=== PATIENT | male | born 1975 | race Caucasian/White ===

== ENCOUNTER 2017-01-17 09:18 | Inpatient (IN) | payer OTHER ==
[~2017-01-17] VITALS: Ht 185.4 cm; Wt 136.8 kg
[2017-01-17] VITALS (7 sets, daily range): BP systolic 116–134; BP diastolic 71–90; PULSE 73–84; TEMP 36.7–37.1; O2SAT 93–98; Ht 185.4 cm; Wt 136.8 kg
[2017-01-17] MEDS ORDERED: CITA40TA12 PO (09:35)
[2017-01-17] MEDS ORDERED: ATOR-54 PO (09:35)
[2017-01-17] MEDS ORDERED: DPKEC250 PO (09:35)
[2017-01-17] MEDS ORDERED: RMRS/45 PO (09:35)
[2017-01-17] MEDS ORDERED: LSN/20125 PO (09:35)
[2017-01-17] MEDS ORDERED: SODIUM CHLORIDE 0.9% 1000ML 1,000 ML IV STA (09:52)
[2017-01-17 10:03] LABS: BASO % 0.3 %; BASO ABS # 0.02 K/uL (0-0.2); COMPLETE YES; EOS % 1.2 %; HEMATOCRIT 43.7 % (42-52); IG% 0.3 %; LYMPH % 32.6 %; LYMPH ABS # 2.19 K/uL (1.2-3.4); MEAN CELL VOLUME 85.2 fL (80-100); MEAN CORPUSCULAR HEMOGLOBIN 28.5 pg (25-34); MEAN CORPUSCULAR HGB CONC 33.4 g/dl (32-36); MEAN PLATELET VOLUME 8.7 fL (7.4-10.4); MONO % 9.7 %; NEUT % 55.9 %; PLATELET COUNT 242 K/uL (130-400); RED BLOOD COUNT 5.13 M/uL (4.7-6.1); WHITE BLOOD COUNT 6.72 K/uL (4.8-10.8)
--- NOTE | 2017-01-17 10:03 | EMERGENCY ROOM VISIT NOTE ---
History Report prepared by Shanon: Julio Bloom Under the Supervision of: Dr. Darin Nj D.O. First contact with patient: 09:24 Stated Complaint: CHEST PAIN History of Present Illness The patient is a 41 year old male who presents to the Emergency Room with complaints of constant chest pain starting earlier this morning. The patient states that he was walking around, and he started getting chest tightness, chest pain, left arm pain, shortness of breath, nausea, and became diaphoretic. The patient denies any leg swelling or leg pain. He states that he has never had pain like this before, and he had a stress test done 10 years ago. The patient denies any history of blood clots, though he has a history of hypertension, high cholesterol, bipolar, and depression. He states that he takes Depakote for his bipolar disorder for the past 8 months. The patient states that he was given aspirin and nitroglycerine prior to arrival, and he states that it improved the symptoms. He states that he does not have a family history of early heart attacks, and he denies smoking for three years, drinking alcohol, or using drugs. Source of History: patient Onset: this morning Position: chest Timing: constant Modifying Factors (Relieving): other (nitroglycerine and aspirin) Associated Symptoms: + diaphoresis, + SOB, + nausea Note: Associated symptoms: Left arm pain Review of Systems See HPI for pertinent positives & negatives. A total of 10 systems reviewed and were otherwise negative. Past Medical & Surgical Medical Problems: (1) Bipolar disorder (2) Depression (3) High cholesterol (4) Hypertension (5) Unstable angina Social History Smoking Status: Former Smoker Housing Status: other Occupation Status: unemployed Current/Historical Medications Scheduled Atorvastatin (Lipitor), 20 MG PO DAILY Citalopram Hydrobromide (Celexa), 40 MG PO DAILY Divalproex Sodium (Divalproex Sodium Dr), 250 MG PO BID Hctz/Lisinopril (PRINZIDE 20/12.5 Mg), 1 TAB PO DAILY Mirtazapine (Mirtazapine), 45 MG PO HS Allergies Coded Allergies: Prochlorperazine (Unverified Allergy, Unknown, ., 01/17/17) Physical Exam Vital Signs Date Time Temp Pulse Resp B/P (MAP) Pulse Ox O2 Delivery O2 Flow Rate FiO2 01/17/17 11:44 96 Room Air 01/17/17 10:51 96 16 120/91 96 Room Air 01/17/17 09:33 110 01/17/17 09:30 37.5 101 16 129/85 94 Room Air 01/17/17 09:26 96 Room Air 01/17/17 09:23 95 Room Air Physical Exam GENERAL: Patient is awake, alert, and in no acute distress. Patient is resting comfortably and showing no signs of anxiety EYES: The conjunctivae are clear. The pupils are round and reactive. EARS, NOSE, MOUTH AND THROAT: The nose is without any evidence of any deformity. Mucous membranes are moist tongue is midline NECK: The neck is nontender and supple. RESPIRATORY: Normal respiratory effort is noted there is no evidence of wheezing rhonchi or rales CARDIOVASCULAR: Regular rate and rhythm noted there no murmurs rubs or gallops normal S1 normal S2 GASTROINTESTINAL: The abdomen is soft. Bowel sounds are present in all quadrants. Abdomen is nontender MUSCULOSKELETAL/EXTREMITIES: There is no evidence of gross deformity full range of motion is noted in the hips and shoulders SKIN: There is no obvious evidence of any rash. There are no petechiae, pallor or cyanosis noted. NEUROLOGIC: Patient is awake alert and oriented x3 Medical Decision & Procedures ER Provider Diagnostic Interpretation: X-ray results as stated below per interpretation by me and the radiologist. CHEST ONE VIEW PORTABLE CLINICAL HISTORY: CHEST PAIN dyspnea COMPARISON STUDY: No previous studies for comparison. FINDINGS: The bones soft tissues and hemidiaphragms are normal. The cardiomediastinal silhouette is normal. The lungs are clear. The pulmonary vasculature is normal. IMPRESSION: Negative chest. Electronically signed by: Tylor Garcia M.D. 01/17/2017 10:52 AM Dictated Date/Time: 01/17/2017 10:52 AM Laboratory Results 01/17/17 09:25 Red Blood Count 5.13, Mean Corpuscular Volume 85.2, Mean Corpuscular Hemoglobin 28.5, Mean Corpuscular Hemoglobin Concent 33.4, Mean Platelet Volume 8.7, Neutrophils (%) (Auto) 55.9, Lymphocytes (%) (Auto) 32.6, Monocytes (%) (Auto) 9.7, Eosinophils (%) (Auto) 1.2, Basophils (%) (Auto) 0.3, Neutrophils # (Auto) 3.76, Lymphocytes # (Auto) 2.19, Monocytes # (Auto) 0.65, Eosinophils # (Auto) 0.08, Basophils # (Auto) 0.02 01/17/17 09:25 Test 01/17/17 09:25 01/17/17 09:56 White Blood Count 6.72 K/uL (4.8-10.8) Red Blood Count 5.13 M/uL (4.7-6.1) Hemoglobin 14.6 g/dL (14.0-18.0) Hematocrit 43.7 % (42-52) Mean Corpuscular Volume 85.2 fL (80-100) Mean Corpuscular Hemoglobin 28.5 pg (25-34) Mean Corpuscular Hemoglobin Concent 33.4 g/dl (32-36) Platelet Count 242 K/uL (130-400) Mean Platelet Volume 8.7 fL (7.4-10.4) Neutrophils (%) (Auto) 55.9 % Lymphocytes (%) (Auto) 32.6 % Monocytes (%) (Auto) 9.7 % Eosinophils (%) (Auto) 1.2 % Basophils (%) (Auto) 0.3 % Neutrophils # (Auto) 3.76 K/uL (1.4-6.5) Lymphocytes # (Auto) 2.19 K/uL (1.2-3.4) Monocytes # (Auto) 0.65 K/uL (0.11-0.59) Eosinophils # (Auto) 0.08 K/uL (0-0.5) Basophils # (Auto) 0.02 K/uL (0-0.2) RDW Standard Deviation 39.0 fL (36.4-46.3) RDW Coefficient of Variation 12.5 % (11.5-14.5) Immature Granulocyte % (Auto) 0.3 % Immature Granulocyte # (Auto) 0.02 K/uL (0.00-0.02) Prothrombin Time 10.5 SECONDS (9.0-12.0) Prothromb Time International Ratio 1.0 (0.9-1.1) D-Dimer < 190 ug/L FEU (0-500) Anion Gap 10.0 mmol/L (3-11) Est Creatinine Clear Calc Drug Dose 143.4 ml/min Estimated GFR () 111.1 Estimated GFR (Non- 95.9 BUN/Creatinine Ratio 14.4 (10-20) Calcium Level 8.9 mg/dl (8.5-10.1) Total Bilirubin 0.6 mg/dl (0.2-1) Direct Bilirubin 0.1 mg/dl (0-0.2) Aspartate Amino Transf (AST/SGOT) 24 U/L (15-37) Alanine Aminotransferase (ALT/SGPT) 56 U/L (12-78) Alkaline Phosphatase 65 U/L (45-117) Total Protein 7.2 gm/dl (6.4-8.2) Albumin 3.7 gm/dl (3.4-5.0) Lipase 170 U/L (73-393) Valproic Acid (Depakene) Level 60 mcg/ml (50-100) Bedside Troponin I < 0.030 ng/ml (0-0.045) Laboratory results per my review. Medications Administered Medications (Trade) Dose Ordered Sig/Vale Route Start Time Stop Time Status Last Admin Dose Admin Sodium Chloride 1,000 ml @ 999 mls/hr Q1H1M STAT IV 01/17/17 09:52 01/17/17 10:52 DC 01/17/17 09:57 999 MLS/HR Heparin Sodium/ Dextrose (Heparin 25,000 Unit/500ml D5W) 25,000 unit STK-MED ONCE .ROUTE 01/17/17 11:03 01/17/17 11:04 DC 01/17/17 11:12 25,000 UNIT Heparin Sodium (Porcine) (Heparin Sq 5000 Unit/0.5ml) 10,000 unit STK-MED ONCE .ROUTE 01/17/17 11:03 01/17/17 11:04 DC 01/17/17 11:13 8,000 UNIT ECG Indication: chest pain Rate (beats per minute): 98 Rhythm: normal sinus Findings: no ectopy, other (No ST abnormality) Comparison ECG Date: this morning Change: Resolution of previous noted ST segment depression in the inferior and lateral leads. ED Course 0949: The patient was evaluated in room A3. A complete history and physical examination were performed. 0952: NSS 1,000 ml @ 999 mls/hr IV 0956: I discussed the patients case with Dr. Coffey, Cardiology, and he would like to wait for the blood work to come back for further treatment. 1039: I discussed the patients case with Lilly Keys and she is going to evaluate the patient for further treatment. 1103: Heparin sq 5000 Unit/0.5ml 8000 units IV, Heparin 25650 Unit/500ml D5W 27080 units IV Medical Decision Differential diagnosis: Etiologies such as cardiac ischemia, aortic dissection, pulmonary embolism, pneumonia, pneumothorax, musculoskeletal, infections, pericarditis, myocarditis , esophageal rupture, gastrointestinal, as well as others were entertained. Blood pressure screening: Patient was found to have normal blood pressure on screening and does not require follow-up. Medication Reconciliation: I attest that I have personally reviewed the patient' s current medications list. Nursing notes reviewed. Patient's previous records from [facility] were reviewed. The patient is a 41-year-old male who presented to the emergency department with exertional chest discomfort. The patient describes discomfort across his chest which began this morning while he was walking. He was diaphoretic. He was treated with aspirin and nitroglycerin at the [facility] prior to arrival. He arrived at the emergency Department with significant improvement in his chest pain. His EKG normalized. I discussed the patient's laboratory and radiographic studies with him. I also discussed the limitations of the emergency department workup for chest pain with him. I discussed his case with the on-call wire setter because of his presenting initial EKG. The patient's pain was significantly improved his EKG normalized and his initial cardiac biomarkers are negative. He was started on IV heparin in the emergency department. I discussed his case with the on-call Lilly hospitalist. They've agreed to evaluate patient in the emergency department for further management and disposition. Consults Time Called: [phone] Consulting Physician: Dr. Coffey, Cardiology Returned Call: [phone] I discussed the patients case with Dr. Coffey, Cardiology, and he would like to wait for the blood work to come back for further treatment. Additional Consults: Time Called: [phone] Consulted Physician: Lilly Keys Returned Call: [phone] Additional Comments: I discussed the patients case with Lilly Keys and she is going to evaluate the patient for further treatment. Impression Primary Impression: Substernal chest pain Additional Impressions: Abnormal EKG Unstable angina Critical Care I have personally spent greater than 35 minutes of critical care time in the direct management of this patient. This includes bedside care, interpretation of diagnostic studies, and testing, discussion with consultants, patient, and family members, and other required patient management activities. This 35 minutes is in excess of all separately billable procedures. Scribe Attestation The scribe's documentation has been prepared under my direction and personally reviewed by me in its entirety. I confirm that the note above accurately reflects all work, treatment, procedures, and medical decision making performed by me. Departure Information Dispostion Being Evaluated By Hospitalist Referrals No Doctor, Assigned (PCP) Problem Qualifiers
[2017-01-17 10:12] LABS: PARTIAL THROMBOPLASTIN RATIO 1.1; PROTHROMBIN TIME (PATIENT) 10.5 SECONDS (9.0-12.0)
[2017-01-17 10:20] LABS: BUN/CREATININE RATIO 14.4 (10-20); CALCIUM 8.9 mg/dl (8.5-10.1); CREATININE 0.97 mg/dl (0.60-1.40); POTASSIUM 3.7 mmol/L (3.5-5.1)
[2017-01-17 10:26] LABS: CKMB/CK RATIO 0.9 (0-3.0)
--- NOTE | 2017-01-17 10:54 | DIAGNOSTIC IMAGING REPORT ---
CHEST ONE VIEW PORTABLE CLINICAL HISTORY: CHEST PAIN dyspnea COMPARISON STUDY: No previous studies for comparison. FINDINGS: The bones soft tissues and hemidiaphragms are normal. The cardiomediastinal silhouette is normal. The lungs are clear. The pulmonary vasculature is normal. IMPRESSION: Negative chest. Electronically signed by: Tylor Garcia M.D. 01/17/2017 10:52 AM Dictated Date/Time: 01/17/2017 10:52 AM
[2017-01-17] MEDS ORDERED: HEPARIN 25000 UNIT/500 ML D5W ONE (11:03)
[2017-01-17] MEDS ORDERED: HEPARIN SOD 5000 UNIT/0.5 ML CARP ONE (11:03)
[2017-01-17] MEDS ORDERED: ALUMINUM/MAGNESIUM/SIMETH (MAALOX MAX) 30 ML UDC PO PRN (12:00)
[2017-01-17] MEDS ORDERED: ONDANSETRON INJ 2 MG/ML 2 ML VIAL IV PRN (12:00)
[2017-01-17] MEDS ORDERED: NITROGLYCERIN 0.4 MG SL PER TAB CHARGE SL PRN (12:00)
[2017-01-17] MEDS ORDERED: POLYETHYLENE (MIRALAX) 17 GM PACK PO PRN (12:00)
[2017-01-17] MEDS ORDERED: ACETAMINOPHEN 325 MG TAB PO PRN (12:00)
[2017-01-17] MEDS ORDERED: MAGNESIUM HYDROXIDE SUSP 30 ML UDC PO PRN (12:00)
[2017-01-17] MEDS: HEPARIN 25,000 UNIT/500ML D5W 500 ML IV PRN ×2 (14:03→23:42)
--- NOTE | 2017-01-17 15:32 | History and Physical ---
History & Physical Date & Time of Service: Jan 17, 2017 at 15:32 Chief Complaint: Unstable Angina Primary Care Physician: Abebe RIVERA History of Present Illness Source: patient This is a 41 yo M [facility] with past medical hx of HTN , hyperlipidemia , depression , bipolar mood disorder presented to ED with complain of left sided chest pain started this AM pt mentions while he was walking started to have dull heaviness on his left side of chest ,associated with palpitation , was very SOB , felt nauseous, broke into sweat pain radiated to his left arm was sent to [facility] -pt was given Aspirin 325 mg and SL nitro his pain eased up EKG done at [facility] showed ST depression in Inf and lateral leads pt was sent to [facility] ER via EMS pt given SL nitro spray since arrival to ED -had not had any episode of chest pain pt mentions of having intermittent palpitation for past 1 week with PADILLA denies of any orthopnea , no ankle swelling never had angina episode in past no family hx of CAD Grandmother has hx of DM and CVA during my time of interview , pt was comfortable , no SOB mentions of intermittent chest heaviness , not bothering him much no complain of palpitation , dizzy spell or lightheadedness Social History Smoking Status: Never Smoker Occupational Status: unemployed Allergies Coded Allergies: Prochlorperazine (Unverified Allergy, Unknown, ., 01/17/17) Home Medications Scheduled Atorvastatin (Lipitor), 20 MG PO DAILY Citalopram Hydrobromide (Celexa), 40 MG PO DAILY Divalproex Sodium (Divalproex Sodium Dr), 250 MG PO BID Hctz/Lisinopril (PRINZIDE 20/12.5 Mg), 1 TAB PO DAILY Mirtazapine (Mirtazapine), 45 MG PO HS Review of Systems Constitutional: No fever, No chills, No sweats, No weight loss, No weakness, No fatigue, No problem reported ENT: No hearing loss, No unusual epistaxis, No nasal symptoms, No sore throat, No tinnitus, No dental problems, No trouble swallowing, No problem reported Respiratory: + shortness of breath, + dyspnea on exertion Cardiovascular: + chest pain, + palpitations Abdomen: No pain, No nausea, No vomiting, No diarrhea, No constipation, No GI bleeding, No problem reported Musculoskeletal: No joint pain, No muscle pain, No swelling, No calf pain, No problem reported Neurologic: No memory loss, No paralysis, No weakness, No numbness/tingling, No vertigo, No balance problems, No problem reported Physical Exam Vital Signs Date Time Temp Pulse Resp B/P (MAP) Pulse Ox O2 Delivery O2 Flow Rate FiO2 01/17/17 15:11 37.1 84 18 134/82 (99) 93 Room Air 01/17/17 13:07 36.9 83 18 132/79 (96) 98 Room Air 01/17/17 12:31 89 20 134/91 94 Room Air 01/17/17 11:44 96 Room Air 01/17/17 10:51 96 16 120/91 96 Room Air 01/17/17 09:33 110 01/17/17 09:30 37.5 101 16 129/85 94 Room Air 01/17/17 09:26 96 Room Air 01/17/17 09:23 95 Room Air General Appearance: no apparent distress Head: normocephalic, atraumatic Eyes: sclerae normal Neck: supple, thyroid normal, no carotid bruits Respiratory/Chest: chest non-tender, lungs clear, normal breath sounds, no respiratory distress Cardiovascular: regular rate, rhythm, no edema, no JVD Abdomen/GI: normal bowel sounds, non tender, soft Extremities/Musculoskelatal: normal inspection, no calf tenderness, normal capillary refill, no pedal edema, normal range of motion Neurologic/Psych: no motor/sensory deficits, alert, normal mood/affect, oriented x 3 Skin: normal color, warm/dry, no rash Lymphatic: no adenopathy Diagnostics Laboratory Results Results Past 24 Hours Test 01/17/17 09:25 01/17/17 09:56 Range/Units White Blood Count 6.72 4.8-10.8 K/uL Red Blood Count 5.13 4.7-6.1 M/uL Hemoglobin 14.6 14.0-18.0 g/dL Hematocrit 43.7 42-52 % Mean Corpuscular Volume 85.2 80-100 fL Mean Corpuscular Hemoglobin 28.5 25-34 pg Mean Corpuscular Hemoglobin Concent 33.4 32-36 g/dl Platelet Count 242 130-400 K/uL Mean Platelet Volume 8.7 7.4-10.4 fL Neutrophils (%) (Auto) 55.9 % Lymphocytes (%) (Auto) 32.6 % Monocytes (%) (Auto) 9.7 % Eosinophils (%) (Auto) 1.2 % Basophils (%) (Auto) 0.3 % Neutrophils # (Auto) 3.76 1.4-6.5 K/uL Lymphocytes # (Auto) 2.19 1.2-3.4 K/uL Monocytes # (Auto) 0.65 0.11-0.59 K/uL Eosinophils # (Auto) 0.08 0-0.5 K/uL Basophils # (Auto) 0.02 0-0.2 K/uL RDW Standard Deviation 39.0 36.4-46.3 fL RDW Coefficient of Variation 12.5 11.5-14.5 % Immature Granulocyte % (Auto) 0.3 % Immature Granulocyte # (Auto) 0.02 0.00-0.02 K/uL Prothrombin Time 10.5 9.0-12.0 SECONDS Prothromb Time International Ratio 1.0 0.9-1.1 Activated Partial Thromboplast Time 28.0 21.0-31.0 SECONDS Partial Thromboplastin Ratio 1.1 D-Dimer < 190 0-500 ug/L FEU Sodium Level 140 136-145 mmol/L Potassium Level 3.7 3.5-5.1 mmol/L Chloride Level 106 98-107 mmol/L Carbon Dioxide Level 24 21-32 mmol/L Anion Gap 10.0 3-11 mmol/L Blood Urea Nitrogen 14 7-18 mg/dl Creatinine 0.97 0.60-1.40 mg/dl Est Creatinine Clear Calc Drug Dose 143.4 ml/min Estimated GFR () 111.1 Estimated GFR (Non- 95.9 BUN/Creatinine Ratio 14.4 10-20 Random Glucose 123 70-99 mg/dl Calcium Level 8.9 8.5-10.1 mg/dl Total Bilirubin 0.6 0.2-1 mg/dl Direct Bilirubin 0.1 0-0.2 mg/dl Aspartate Amino Transf (AST/SGOT) 24 15-37 U/L Alanine Aminotransferase (ALT/SGPT) 56 12-78 U/L Alkaline Phosphatase 65 45-117 U/L Total Creatine Kinase 233 39-308 U/L Creatine Kinase MB 2.1 0.5-3.6 ng/ml Creatine Kinase MB Ratio 0.9 0-3.0 Total Protein 7.2 6.4-8.2 gm/dl Albumin 3.7 3.4-5.0 gm/dl Lipase 170 73-393 U/L Valproic Acid (Depakene) Level 60 50-100 mcg/ml Bedside Troponin I < 0.030 0-0.045 ng/ml Diagnostic Radiology ECHO 01/17/17 * Normal LV chamber size with mild concentric LVH. * Normal LV systolic function, EF 55-60%. * No segmental left ventricular wall motion abnormalities are noted. * Grade II diastolic dysfunction. * No significant valvular pathology. EKG EKG : AT [facility] : matt sinus rhythm ST depression on lead II /AVL ST depression on V4-V6 EKG in ED [facility] 01/17/17 9: 23 am normal sinus rhythm HR [address] depression in Inf and lateral leads Impression Assessment and Plan CHEST PAIN /UNSTABLE ANGINA /WITH DYNAMIC EKG CHANGE : had typical anginal symptom this AM with EKG changes shows ST depression in inf and Ant lateral leads EKG changes resolved at present symptom free ECHO ; shows no wall motion abnormality pt will be continued to be monitor in Tele serial cardiac markers to be checked ( initial Alex -normal ) pt will be continued on Aspirin , Statin /ACEI /HCTZ ( ECHO shows grade 2 diastolic dysfunction ) added Beta bettina Cardiology eval requested ordered for NPO past midnight except for meds for possible stress test in AM HTN : cont HCTZ /ACEI added Lopressor for anginal symptom HYPERLIPIDEMIA : cont on statin Fasting lipid panel ordered on AM labs DEPRESSION : cont Celexa BIPOLAR MOOD DISORDER : on Depakote level therapeutic FULL CODE DVT PROPHYLAXIS : IV heparin wt based protocol DISPOSITION : [facility] medically stable Level of Care Telemetry Advanced Directives Existing Living Will: No Existing Power of Auto Body Repair Technician: No Resuscitation Status FULL RESUSCITATION VTE Prophylaxis VTE Risk Assessment Done? Y/N: Yes Risk Level: Moderate Given or contraindicated: Other Anticoagulation (IV heparin wt based protocol )
--- NOTE | 2017-01-17 16:12 | ECHOCARDIOGRAM REPORT ---
*NOTICE TO RECEIVING REPUBLICAN AGENCY This information is strictly Confidential and protected under [place] law. [place] law prohibits you from making any further disclosure of this information unless further disclosure is expressly permitted by the written consent of the person to whom it pertains or is authorized by law. A general authorization for the release of medical or other information is not sufficient for this purpose. Hospital accepts no responsibility if the information is made available to any other person, INCLUDING THE PATIENT. Interpretation Summary * Name: JESSICA GIMENEZ [id number] Study Date: 01/17/2017 02:31 PM BP: 132/79 mmHg * Patient Location: [facility] HR: 76 * : 1975 (M/d/yyyy) Gender: Male Height: 73 in * Age: 41 yrs Ethnicity: CA Weight: 297 lb * Ordering Physician: Nirali Benson * Referring Physician: Abebe RIVERA * Performed By: Kathleen Fernandez RCS * * Reason For Study: CHEST PAIN * BSA: 2.5 m2 * -- Conclusions -- * Normal LV chamber size with mild concentric LVH. * Normal LV systolic function, EF 55-60%. * No segmental left ventricular wall motion abnormalities are noted. * Grade II diastolic dysfunction. * No significant valvular pathology. Procedure Details * Left Ventricle The left ventricle is normal in size. There is mild concentric left ventricular hypertrophy. Ejection Fraction = 55-60%. Left ventricular systolic function is normal. No segmental left ventricular wall motion abnormalities are noted. The left ventricular wall motion is normal. * Right Ventricle The right ventricular cavity size is normal (basal dimension <4.2 cm in right ventricular apical 4-chamber view). The right ventricular systolic function is normal as assessed by tricuspid annular plane systolic excursion (TAPSE) (normal >1.5 cm). * Atria The left atrium is mildly dilated. Right atrial size is normal. No ASD detected; PFO is not assessed. * Mitral Valve The mitral valve is normal in structure and function. * Tricuspid Valve The tricuspid valve is normal in structure and function. * Aortic Valve The aortic valve is normal in structure and function. * Pulmonic Valve The pulmonary valve is not well seen, but the Doppler examination is normal without significant regurgitation or stenosis. * Great Vessels The aortic root and proximal ascending aorta are normal sized. * Pericardium/Pleural There is no pericardial effusion. * Left Ventricular Diastolic Function Diastolic dysfunction, Grade II (pseudonormalization pattern). * * MMode 2D Measurements and Calculations * IVSd 1.4 cm * IVSs 1.9 cm * * LVIDd 4.4 cm * LVIDs 3.0 cm * LVPWd 1.4 cm * LVPWs 1.4 cm * * IVS/LVPW 1.0 * FS 31.9 % * EDV(Teich) 87.3 ml * ESV(Teich) 34.7 ml * EF(Teich) 60.3 % * * EDV(cubed) 84.7 ml * ESV(cubed) 26.7 ml * EF(cubed) 68.5 % * % IVS thick 33.0 % * % LVPW thick 1.5 % * * LV mass(C)d 237.9 grams * LV mass(C)dI 93.5 grams/m\S\2 * LV mass(C)s 182.1 grams * LV mass(C)sI 71.5 grams/m\S\2 * * SV(Teich) 52.6 ml * SI(Teich) 20.7 ml/m\S\2 * SV(cubed) 58.0 ml * SI(cubed) 22.8 ml/m\S\2 * * Ao root diam 2.8 cm * Ao root area 6.1 cm\S\2 * LA dimension 4.0 cm * * LA/Ao 1.4 * LVOT diam 2.1 cm * LVOT area 3.6 cm\S\2 * * LVAd ap4 36.2 cm\S\2 * LVLd ap4 8.2 cm * EDV(MOD-sp4) 125.9 ml * EDV(sp4-el) 135.8 ml * LVAs ap4 23.0 cm\S\2 * LVLs ap4 7.0 cm * ESV(MOD-sp4) 63.5 ml * ESV(sp4-el) 64.1 ml * EF(MOD-sp4) 49.6 % * EF(sp4-el) 52.8 % * * LVAd ap2 26.6 cm\S\2 * LVLd ap2 8.4 cm * EDV(MOD-sp2) 68.8 ml * EDV(sp2-el) 71.1 ml * LVAs ap2 16.7 cm\S\2 * LVLs ap2 6.8 cm * ESV(MOD-sp2) 34.7 ml * ESV(sp2-el) 34.6 ml * EF(MOD-sp2) 49.5 % * EF(sp2-el) 51.4 % * * LVLd %diff 3.0 % * EDV(MOD-bp) 91.3 ml * LVLs %diff -2.80 % * ESV(MOD-bp) 47.4 ml * EF(MOD-bp) 48.1 % * * SV(MOD-sp4) 62.4 ml * SI(MOD-sp4) 24.5 ml/m\S\2 * * SV(MOD-sp2) 34.0 ml * SI(MOD-sp2) 13.4 ml/m\S\2 * * SV(MOD-bp) 43.9 ml * SI(MOD-bp) 17.2 ml/m\S\2 * * SV(sp4-el) 71.8 ml * SI(sp4-el) 28.2 ml/m\S\2 * * SV(sp2-el) 36.5 ml * SI(sp2-el) 14.4 ml/m\S\2 * * * Doppler Measurements and Calculations * MV E max brodie 51.2 cm/sec * MV A max brodie 42.1 cm/sec * * MV E/A 1.2 * * MV P1/2t max brodie 72.5 cm/sec * MV P1/2t 72.7 msec * MVA(P1/2t) 3.0 cm\S\2 * MV dec slope 291.8 cm/sec\S\2 * MV dec time 0.26 sec * * Ao V2 max 109.6 cm/sec * Ao max PG 4.8 mmHg * Ao max PG (full) 1.6 mmHg * CHELSY(V,A) 2.9 cm\S\2 * CHELSY(V,D) 2.9 cm\S\2 * * LV V1 max PG 3.2 mmHg * * LV V1 max 89.0 cm/sec * * PA V2 max 123.6 cm/sec * PA max PG 6.1 mmHg * * *
[2017-01-17 17:49] LABS: PARTIAL THROMBOPLASTIN RATIO 2.1
[2017-01-17 18:07] LABS: CKMB/CK RATIO 0.9 (0-3.0)
--- NOTE | 2017-01-17 18:19 | Progress Note ---
Progress Note Date of Service Jan 17, 2017. Progress Note Troponin on 17: 20 0.236 ( POC was < 0.03 ) already on IV heparin no complain of chest pain cont to follow serial trends Cardiology to see the pt
[2017-01-17] MEDS ORDERED: MIRTAZAPINE TAB 15 MG TAB PO SCH (21:00)
[2017-01-17] MEDS: DIVALPROEX SODIUM 250 MG DELAY REL TAB PO SCH (21:02)
[2017-01-17] MEDS: METOPROLOL TARTRATE 25 MG TAB PO SCH (21:11)
[2017-01-18] VITALS: O2SAT 95
[2017-01-18 04:00] VITALS: O2SAT 95
[2017-01-18 04:19] LABS: PARTIAL THROMBOPLASTIN RATIO 2.1
[2017-01-18 04:29] LABS: CHOLESTEROL/HDL RATIO 3.8
[2017-01-18 05:12] VITALS: BP 115/74; PULSE 72; TEMP 36.6; O2SAT 96
[2017-01-18 07:46] VITALS: BP 122/80; PULSE 72; TEMP 36.8; O2SAT 96
[2017-01-18] MEDS: DIVALPROEX SODIUM 250 MG DELAY REL TAB PO SCH (07:49)
[2017-01-18] MEDS: METOPROLOL TARTRATE 25 MG TAB PO SCH (07:49)
[2017-01-18] MEDS ORDERED: LISINOPRIL/HCTZ 20/12.5MG TAB PO SCH (09:00)
[2017-01-18] MEDS ORDERED: ASPIRIN 81 MG ECTAB PO SCH (09:00)
[2017-01-18] MEDS ORDERED: ATORVASTATIN 20 MG TAB PO SCH (09:00)
[2017-01-18] MEDS ORDERED: CITALOPRAM 40 MG TAB PO SCH (09:00)
--- NOTE | 2017-01-18 10:11 | Cardiology Consultation ---
Cardiology Consultation History of Present Illness Patient is a 41 year old male presented with complaint of chest pain. States walking in cell block when suddenly developed substernal pressure associated with diaphoresis, radiation down left arm, nausea and lightheadedness. Not overly anxious or stressed. Resolved after almost an hour. EKG at [facility] was abnormal and transferred to ER. Trop minimally above normal range overnight. no recurrence of symptoms. History Social History: former smoker, quit 3 years ago. denies alcohol. currently confined at [facility] Family History: denies premature cad or sudden cardiac Past Medical/Surgical History Problem List: Medical Problems: (1) Bipolar disorder (2) Depression (3) High cholesterol (4) Hypertension (5) Unstable angina Review Of Systems General: The patient denies weight change, night sweats, fever, chills. Head: The patient denies headache and prior head trauma. Cardiovascular: The patient denies chest pain or chest discomfort, dyspnea on exertion, palpitations, PND, orthopnea, edema, spontaneous shortness of breath, syncope and near syncope. Pulmonary: The patient denies cough, wheeze, pleurisy, hemoptysis, sputum, and excessive snoring. Gastrointestinal: The patient denies nausea, vomiting, diarrhea, constipation, bloating, hematemesis, hematochezia, and abdominal pain. Skin: The patient denies diaphoresis and rash. Musculoskeletal: The patient denies joint pain, joint swelling, myalgia, back pain, neck pain and prior injuries. Neurological: The patient denies prior stroke and seizures Allergies Coded Allergies: Prochlorperazine (Unverified Allergy, Unknown, ., 01/17/17) Medications Reported Home Medications Medications Dose Route/Sig Max Daily Dose Days Date Category Mirtazapine 45 Mg Tab 45 Mg PO HS 01/17/17 Reported Celexa (Citalopram Hydrobromide) 40 Mg Tab 40 Mg PO DAILY 01/17/17 Reported PRINZIDE 20/12.5 Mg (HCTZ/Lisinopril) 1 Ea Tab 1 Tab PO DAILY 01/17/[address] (Divalproex Sodium) 250 Mg Tabec 250 Mg PO BID 01/17/17 Reported Lipitor (Atorvastatin) 20 Mg Tab 20 Mg PO DAILY 01/17/17 Reported Physical Exam Vital Signs (Last 8hrs): Last 8 Hrs Date Time Temp Pulse Resp B/P (MAP) Pulse Ox O2 Delivery O2 Flow Rate FiO2 01/18/17 07:46 36.8 72 16 122/80 (94) 96 Room Air 01/18/17 07:45 Room Air 01/18/17 05:12 36.6 72 18 115/74 (88) 96 Room Air 01/18/17 04:00 95 Room Air General Appearance: Alert and Oriented x3. NAD. Head: Normocephalic Atraumatic. Eyes: PERRLA, EOMI, conjunctiva and sclera clear Neck: Supple. No carotid bruits noted. No JVD. No HJD. Respiratory: Breath sounds clear to auscultation bilaterally. No w/r/r. Cardiovascular: Reg rate and rhythm. S1 and S2 noted. No murmurs, rubs, gallops. PMI non displace. Abdomen: Normal bowel sounds, soft nontender. no abdominal bruits. Extremities: No edema, no clubbing or cyanosis. distal pulses 2/4 bilaterally. Neuro: No focal deficits. Psychiatric: Normal affect. Data Last 24 Hours Test 01/17/17 17:20 01/18/17 01:22 01/18/17 03:45 Activated Partial Thromboplast Time 54.6 SECONDS 55.8 SECONDS Partial Thromboplastin Ratio 2.1 2.1 Total Creatine Kinase 195 U/L 175 U/L Creatine Kinase MB 1.8 ng/ml 1.8 ng/ml Creatine Kinase MB Ratio 0.9 1.0 Troponin I 0.236 ng/ml 0.097 ng/ml Triglycerides Level 224 mg/dl Cholesterol Level 162 mg/dl HDL Cholesterol 43 mg/dl LDL Cholesterol, Calculated 74 mg/dl VLDL Cholesterol, Calculated 45 mg/dl Cholesterol/HDL Ratio 3.8 max cpk of 233, trop of 0.2 EKG:Normal sinus rhythm Normal ECG No previous ECGs available Telemetry reviewed: sinus without arrhythmia Assessment & Plan Chest pain negative stress echocardiogram: nonischemic likely secondary to hypertensive urgency would increase home meds to lisinopril/hctz 40/25mg would also start asa 81mg daily for primary prevention HTN hypertensive changes on echocardiogram will need to be followed closely as outpatient will need BMP in 1 week in follow up after increasing medication dosage ok to d/c from cardiology standpoint.
[2017-01-18 12:01] VITALS: BP 107/68; PULSE 80; TEMP 36.9; O2SAT 94
[2017-01-18] MEDS ORDERED: LSN40 PO (13:32)
[2017-01-18] MEDS ORDERED: HYDR25TA4 PO (13:32)
[2017-01-18] MEDS ORDERED: ASPEC81 PO (13:32)
--- NOTE | 2017-01-18 13:35 | Discharge Instructions ---
Discharge Instructions Date of Service Jan 18, 2017. Admission Reason for Admission: Unstable Angina Discharge Discharge Diagnosis / Problem: CHEST PAIN /NO EVIDENCE OF ASC /HYPERTENSIVE URGENCY Discharge Goals Goal(s): Decrease discomfort, Diagnostic testing, Therapeutic intervention Activity Recommendations Activity Limitations: resume your previous activity . Instructions / Follow-Up Instructions / Follow-Up FOLLOW UP WITH PHYSICIAN AT [facility] NEED CLOSE MONITORING OF BLOOD PRESSURE NEW MEDICATIONS : ASPIRIN 81 MG DAILY -TAKE WITH FOOD LISINOPRIL DOSE INCREASED TO 40 MG DAILY ( WAS ON 20 MG ) HCTZ DOSE INCREASED TO 25 MG DAILY ( WAS ON 12.5 MG ) CHECK LAB : BASIC METABOLIC PANEL IN A WEEK TO ASSES RENAL FUNCTION -DUE TO INCREASE IN DIURETICS DOSE Current Hospital Diet Patient's current hospital diet: AHA Diet (Heart Healthy) Discharge Diet Recommended Diet: AHA Diet (Heart Healthy) Pending Studies Studies pending at discharge: yes List of pending studies: BASIC METABOLIC PANEL IN 1 WEEK Laboratory Results Lipid Panel Test 01/18/17 03:45 Range/Units Triglycerides Level 224 H 0-150 mg/dl Cholesterol Level 162 0-200 mg/dl HDL Cholesterol 43 mg/dl Cholesterol/HDL Ratio 3.8 LDL Cholesterol, Calculated 74 mg/dl Medical Emergencies . Who to Call and When: Medical Emergencies: If at any time you feel your situation is an emergency, please call 911 immediately. . Non-Emergent Contact Non-Emergency issues call your: Primary Care Provider . . "Provider Documentation" section prepared by Nirali Benson. . VTE Core Measure Inpt VTE Proph given/why not?: Unfractionated heparin SQ
[2017-01-18 13:57] VITALS: BP 107/68; PULSE 80; TEMP 36.9; O2SAT 94
--- NOTE | 2017-01-18 14:36 | Progress Note ---
Internal Med Progress Note Date of Service: Jan 18, 2017. Provider Documentation: SUBJECTIVE: no complain of chest pain , no SOB denies of any discomfort cardiac stress test negative for stress induced angina BP remains stable after adjusting meds stable to be discharged today OBJECTIVE: Vital Signs-as noted below Exam: General-no sign of distress Eyes-sclera non ENT-nad Neck-NO jvd Lungs-cta , NO WHEEZE OR RALES Heart-regular S1/s2 Abdomen-soft, non tender Extremities-no lower ext edema Neuro-AAO x3 , no focal deficit Lab data as noted below. ASSESSMENT & PLAN: CHEST PAIN /NO EVIDENCE OF ACS : presented with anginal symptom this with EKG changes shows ST depression in inf and Ant lateral leads at [facility] EKG changes resolved after arrival to ER at [facility] has been symptom free ECHO ; shows no wall motion abnormality Cardiology eval appreciated cardiac Stress test -negative for stress induced angina stable to be discharged home BP medication adjusted for uncontrolled HTN -possible contributing symptom HTN : increased dose of HCTZ /ACEI to ACEI 40 mg daily ( was on 20 mg daily ) /HCTZ 25 mg daily ( was on 12.5 mg daily ) repeat PRP in a week [facility] and adjustment of meds if indicated HYPERLIPIDEMIA : cont on statin Fasting lipid panel shows well controlled lipid profile DEPRESSION : cont Celexa BIPOLAR MOOD DISORDER : on Depakote level therapeutic FULL CODE DVT PROPHYLAXIS : IV heparin D/edith -no evidence of ACS DISPOSITION : Medically stable to return to [facility] today Vital Signs: Date Time Temp Pulse Resp B/P (MAP) Pulse Ox O2 Delivery O2 Flow Rate FiO2 01/18/17 16:00 Room Air 01/18/17 13:57 36.9 80 16 94 Room Air 01/18/17 12:01 36.9 80 16 107/68 (81) 94 Room Air 01/18/17 11:55 Room Air 01/18/17 07:46 36.8 72 16 122/80 (94) 96 Room Air 01/18/17 07:45 Room Air 01/18/17 05:12 36.6 72 18 115/74 (88) 96 Room Air 01/18/17 04:00 95 Room Air 01/18/17 00:00 95 Room Air 01/17/17 23:34 36.7 73 20 116/71 (86) 95 Room Air 01/17/17 21:00 95 Room Air 01/17/17 19:14 36.9 73 18 134/90 (105) 94 Room Air Lab Results: Results Past 24 Hours Test 01/18/17 01:22 01/18/17 03:45 Range/Units Total Creatine Kinase 175 39-308 U/L Creatine Kinase MB 1.8 0.5-3.6 ng/ml Creatine Kinase MB Ratio 1.0 0-3.0 Troponin I 0.097 0-0.045 ng/ml Activated Partial Thromboplast Time 55.8 21.0-31.0 SECONDS Partial Thromboplastin Ratio 2.1 Triglycerides Level 224 0-150 mg/dl Cholesterol Level 162 0-200 mg/dl HDL Cholesterol 43 mg/dl LDL Cholesterol, Calculated 74 mg/dl VLDL Cholesterol, Calculated 45 mg/dl Cholesterol/HDL Ratio 3.8
--- NOTE | 2017-01-18 17:36 | Discharge Summary ---
Discharge Summary Date of Service Jan 18, 2017. Discharge Summary Admission Date: Jan 17, 2017 at 11:45 Discharge Date: Jan 18, 2017 Discharge Disposition: Home ([facility] ) Principal Diagnosis: CHEST PAIN /NO EVIDENCE OF ASC /HYPERTENSIVE URGENCY Procedures: resting ECHO 01/17/17 * Normal LV chamber size with mild concentric LVH. * Normal LV systolic function, EF 55-60%. * No segmental left ventricular wall motion abnormalities are noted. * Grade II diastolic dysfunction. * No significant valvular pathology. CARDIAC STRESS TEST : negative for stress induced ischemia Consultations: [facility] cardiology Medication Reconciliation New Medications: Hydrochlorothiazide (Hctz) 25 Mg Tab 1 TAB PO DAILY for 30 Days, #30 TAB 5 Refills Lisinopril (Lisinopril) 40 Mg Tab 1 TAB PO DAILY for 30 Days, #30 TABS Aspirin (Aspirin EC Low Dose) 81 Mg Ectab 81 MG PO QAM for 30 Days, #30 TABS Continued Medications: Atorvastatin (Lipitor) 20 Mg Tab 20 MG PO DAILY Citalopram Hydrobromide (Celexa) 40 Mg Tab 40 MG PO DAILY Divalproex Sodium (Divalproex Sodium Dr) 250 Mg Tabec 250 MG PO BID Mirtazapine (Mirtazapine) 45 Mg Tab 45 MG PO HS Discontinued Medications: Hctz/Lisinopril (PRINZIDE 20/12.5 Mg) 1 Ea Tab 1 TAB PO DAILY Admission Information HPI (per Admitting provider): This is a 41 yo M resident of [facility] with past medical hx of HTN , hyperlipidemia , depression , bipolar mood disorder presented to ED with complain of left sided chest pain started this AM pt mentions while he was walking started to have dull heaviness on his left side of chest ,associated with palpitation , was very SOB , felt nauseous, broke into sweat pain radiated to his left arm was sent to [facility] -pt was given Aspirin 325 mg and SL nitro his pain eased up EKG done at [facility] showed ST depression in Inf and lateral leads pt was sent to [facility] ER via EMS pt given SL nitro spray since arrival to ED -had not had any episode of chest pain pt mentions of having intermittent palpitation for past 1 week with PADILLA denies of any orthopnea , no ankle swelling never had angina episode in past no family hx of CAD Grandmother has hx of DM and CVA during my time of interview , pt was comfortable , no SOB mentions of intermittent chest heaviness , not bothering him much no complain of palpitation , dizzy spell or lightheadedness Physical Exam (per Admitting): General Appearance: no apparent distress Head: normocephalic, atraumatic Eyes: sclerae normal Neck: supple, thyroid normal, no carotid bruits Respiratory/Chest: chest non-tender, lungs clear, normal breath sounds, no respiratory distress Cardiovascular: regular rate, rhythm, no edema, no JVD Abdomen/GI: normal bowel sounds, non tender, soft Extremities/Musculoskelatal: normal inspection, no calf tenderness, normal capillary refill, no pedal edema, normal range of motion Neurologic/Psych: no motor/sensory deficits, alert, normal mood/affect, oriented x 3 Skin: normal color, warm/dry, no rash Lymphatic: no adenopathy Hospital Course CHEST PAIN /NO EVIDENCE OF ACS : presented with anginal symptom this with EKG changes shows ST depression in inf and Ant lateral leads at [facility] EKG changes resolved after arrival to ER at [facility] has been symptom free ECHO ; shows no wall motion abnormality Cardiology eval appreciated cardiac Stress test -negative for stress induced angina stable to be discharged home BP medication adjusted for uncontrolled HTN -possible contributing symptom HTN : increased dose of HCTZ /ACEI to ACEI 40 mg daily ( was on 20 mg daily ) /HCTZ 25 mg daily ( was on 12.5 mg daily ) repeat PRP in a week will [facility] for [facility] monitoring and adjustment of meds if indicated HYPERLIPIDEMIA : cont on statin Fasting lipid panel shows well controlled lipid profile DEPRESSION : cont Celexa BIPOLAR MOOD DISORDER : on Depakote level therapeutic FULL CODE DVT PROPHYLAXIS : IV heparin D/edith -no evidence of ACS DISPOSITION : Medically stable to return to [facility] today Total time spent on discharge = 35 mins This includes examination of the patient, discharge planning, medication reconciliation, and communication with other providers. Discharge Instructions Discharge Instructions Date of Service Jan 18, 2017. Admission Reason for Admission: Unstable Angina Discharge Discharge Diagnosis / Problem: CHEST PAIN /NO EVIDENCE OF ASC /HYPERTENSIVE URGENCY Discharge Goals Goal(s): Decrease discomfort, Diagnostic testing, Therapeutic intervention Activity Recommendations Activity Limitations: resume your previous activity . Instructions / Follow-Up Instructions / Follow-Up FOLLOW UP WITH PHYSICIAN AT [facility] NEED CLOSE MONITORING OF BLOOD PRESSURE NEW MEDICATIONS : ASPIRIN 81 MG DAILY -TAKE WITH FOOD LISINOPRIL DOSE INCREASED TO 40 MG DAILY ( WAS ON 20 MG ) HCTZ DOSE INCREASED TO 25 MG DAILY ( WAS ON 12.5 MG ) CHECK LAB : BASIC METABOLIC PANEL IN A WEEK TO ASSES RENAL FUNCTION -DUE TO INCREASE IN DIURETICS DOSE Current Hospital Diet Patient's current hospital diet: AHA Diet (Heart Healthy) Discharge Diet Recommended Diet: AHA Diet (Heart Healthy) Pending Studies Studies pending at discharge: yes List of pending studies: BASIC METABOLIC PANEL IN 1 WEEK Laboratory Results Lipid Panel Test 01/18/17 03:45 Range/Units Triglycerides Level 224 H 0-150 mg/dl Cholesterol Level 162 0-200 mg/dl HDL Cholesterol 43 mg/dl Cholesterol/HDL Ratio 3.8 LDL Cholesterol, Calculated 74 mg/dl Medical Emergencies . Who to Call and When: Medical Emergencies: If at any time you feel your situation is an emergency, please call 911 immediately. . Non-Emergent Contact Non-Emergency issues call your: Primary Care Provider . . "Provider Documentation" section prepared by Nirali Benson. . VTE Core Measure Inpt VTE Proph given/why not?: Unfractionated heparin SQ Additional Copies To Oscar Almazan D.O.
--- NOTE | 2017-02-20 08:45 | EXERCISE STRESS ECHO ---
*NOTICE TO RECEIVING [employer]Y This information is strictly Confidential and protected under [place] law. [place] law prohibits you from making any further disclosure of this information unless further disclosure is expressly permitted by the written consent of the person to whom it pertains or is authorized by law. A general authorization for the release of medical or other information is not sufficient for this purpose. Hospital accepts no responsibility if the information is made available to any other person, INCLUDING THE PATIENT. Interpretation Summary * Name: JESSICA GIMENEZ [id number] Study Date: 01/18/2017 08:46 AM BP: 112/60 mmHg * Patient Location: [facility] HR: 64 * : 1975 (M/d/yyyy) Gender: Male Height: 73 in * Age: 41 yrs Ethnicity: CA Weight: 301 lb * Performed By: Rani Cardozo RDCS * * Reason For Study: CHEST PAIN * BSA: 2.6 m2 * -- Conclusions -- * Nonischemic exercise stress echocardiogram. * No arrhythmias. * Normal HR and BP response to exercise. * Below average exercise tolerance. Procedure Details * ECHOEX, CPT #23470 * A contrast injection of Definity was performed to improve assessment of LV function. * Contrast was injected into an intravenous site in the right arm. * One vial of Definity ultrasound contrast was diluted in normal saline to a total volume of 10 ml. A total of '4' ml of solution was administered during imaging. * Lot # [id number] of Definity utilized for procedure. * Expiration date FEB 06. * The attending nurse who injected the contrast agent was DAR ALLEN RN. Stress Parameters * The stress portion of this study was personally supervised by the undersigned interpreting physician. * Rest heart rate was '64' BPM. * Rest blood pressure was '112/60' * Maximum heart rate achieved was 151 bpm. * Maximum heart rate was 84 % of maximum age-predicted heart rate. * Maximum blood pressure was '158/78' * Total exercise time was '7:03' * Maximum exercise MET level achieved was '8.60' METS * Maximum treadmill speed was '3.40' miles per hour. * Maximum treadmill elevation was '14'% grade. * Exercise was terminated due to 'FATIGUE'
== END 2017-01-18 17:30 | DRG 305 ==
LOC: C.EDA 09:22 → C.MED 11:45 → ENRESERV 11:55
PROVIDERS: ADMIT Hospitalist; ATTEND Hospitalist
DX: I16.0 Hypertensive urgency (principal); I10 Essential (primary) hypertension; R94.31 Abnormal electrocardiogram [ECG] [EKG]; E78.5 Hyperlipidemia, unspecified; F31.9 Bipolar disorder, unspecified; Z87.891 Personal history of nicotine dependence; Z79.899 Other long term (current) drug therapy

== ENCOUNTER 2018-08-07 13:29 | Inpatient (IN) ==
[2018-08-07 13:58] LABS: Basophils # (auto) 0.02 K/uL (0-0.2); Basophils % (auto) 0.2 %; Eosinophils # (auto) 0.09 K/uL (0-0.5); Hematocrit (blood only) 43.2 % (42-52); Hemoglobin 14.6 g/dL (14.0-18.0); Immature Granulocytes # (auto) 0.03 K/uL (0.00-0.02); Immature Granulocytes % (auto) 0.3 %; Lymphocytes # (auto) 2.44 K/uL (1.2-3.4); Lymphocytes % (auto) 25.8 %; Mean Corpuscular Hgb Conc 33.8 g/dL (32-36); Mean Corpuscular Volume 85.2 fL (80-100); Mean Platelet Volume 9.2 fL (7.4-10.4); Monocytes # (auto) 0.93 K/uL (0.11-0.59); Monocytes % (auto) 9.8 %; Neutrophils # (auto) 5.95 K/uL (1.4-6.5); Neutrophils % (auto) 62.9 %; Platelet Count 240 K/uL (130-400); RDW Standard Deviation 40.1 fL (36.4-46.3); Red Blood Count 5.07 M/uL (4.7-6.1); White Blood Count 9.46 K/uL (4.8-10.8)
[2018-08-07 14:14] LABS: Alanine Aminotransferase 163 U/L (12-78); Albumin Level 3.5 gm/dl (3.4-5.0); Aspartate Aminotransferase 559 U/L (15-37); BUN Creatinine Ratio 11.3 (10-20); Blood Urea Nitrogen 13 mg/dl (7-18); Calcium 8.8 mg/dl (8.5-10.1); Carbon Dioxide 27 mmol/L (21-32); Chloride 103 mmol/L (98-107); Creatinine Clr Calc Pharmacy 124.3 ml/min; Est GFR (African American) 89.2; Glucose 161 mg/dl (70-99); Magnesium 1.6 mg/dl (1.8-2.4); Potassium 3.6 mmol/L (3.5-5.1); Sodium 137 mmol/L (136-145)
[2018-08-07 14:33] LABS: Alkaline Phosphatase 81 U/L (45-117); Bilirubin,Total 0.7 mg/dl (0.2-1); Creatine Kinase MB 12.2 ng/ml (0.5-3.6); Globulin 3.6 gm/dl (2.5-4.0); Total Protein 7.1 gm/dl (6.4-8.2)
[2018-08-07 14:55] LABS: Amphetamines+Metham, Urine Neg (Neg); Barbiturates, Urine Neg (Neg); Benzodiazepine, Urine Pos (Neg); Cocaine, Urine Neg (Neg); MDMA (Ecstacy), Urine Neg (Neg); Methadone, Urine Neg (Neg); Opiate, Urine Neg (Neg); Phencyclidine, Urine Neg (Neg)
[2018-08-07 16:28] LABS: Hepatitis B Surface Antigen Neg (Neg)
[2018-08-07 16:56] LABS: Hepatitis C IgG 13Yrs+Old_Rflx Neg (Neg)
[2018-08-07 17:59] LABS: Prothrombin Time 10.1 Seconds (9.0-12.0)
[2018-08-08 06:11] LABS: Basophils # (auto) 0.03 K/uL (0-0.2); Basophils % (auto) 0.3 %; Eosinophils # (auto) 0.14 K/uL (0-0.5); Eosinophils % (auto) 1.4 %; Hematocrit (blood only) 42.5 % (42-52); Immature Granulocytes # (auto) 0.04 K/uL (0.00-0.02); Immature Granulocytes % (auto) 0.4 %; Lymphocytes # (auto) 3.17 K/uL (1.2-3.4); Lymphocytes % (auto) 32.4 %; Mean Corpuscular Hgb Conc 32.9 g/dL (32-36); Mean Corpuscular Volume 86.7 fL (80-100); Mean Platelet Volume 9.1 fL (7.4-10.4); Monocytes # (auto) 0.89 K/uL (0.11-0.59); Monocytes % (auto) 9.1 %; Neutrophils # (auto) 5.52 K/uL (1.4-6.5); Neutrophils % (auto) 56.4 %; Platelet Count 221 K/uL (130-400); RDW Coefficient of Variation 13.1 % (11.5-14.5); White Blood Count 9.79 K/uL (4.8-10.8)
[2018-08-08 06:39] LABS: Estimated Average Glucose 183 mg/dl
[2018-08-08 06:41] LABS: Albumin Level 3.2 gm/dl (3.4-5.0); BUN Creatinine Ratio 13.7 (10-20); Calcium 8.2 mg/dl (8.5-10.1); Est GFR (African American) 113.8; Est GFR (Non-African American) 98.2; Magnesium 1.9 mg/dl (1.8-2.4); Potassium 4.5 mmol/L (3.5-5.1)
[2018-08-08 06:49] LABS: Albumin Globulin Ratio 0.9 (0.9-2); Bilirubin Direct 0.2 mg/dl (0-0.2); Bilirubin,Total 0.9 mg/dl (0.2-1); Globulin 3.4 gm/dl (2.5-4.0); Total Protein 6.6 gm/dl (6.4-8.2); Troponin I 1.51 ng/ml (0-0.045)
[2018-08-08 07:54] LABS: Chol HDL Ratio 3; Cholesterol 150 mg/dl (0-200); HDL Cholesterol 44 mg/dl; LDL Cholesterol Calculated 87 mg/dl; Triglycerides 93 mg/dl (0-150); VLDL Cholesterol 19 mg/dl
[2018-08-09 06:35] LABS: Albumin Level 3.3 gm/dl (3.4-5.0); Calcium 8.5 mg/dl (8.5-10.1); Creatinine Clr Calc Pharmacy 150.5 ml/min; Est GFR (African American) 115.3; Est GFR (Non-African American) 99.5; Potassium 4.4 mmol/L (3.5-5.1)
[2018-08-09 06:38] LABS: Albumin Globulin Ratio 0.9 (0.9-2); Bilirubin,Total 0.7 mg/dl (0.2-1); Globulin 3.7 gm/dl (2.5-4.0)
[2018-08-10 10:04] LABS: Albumin Level 3.3 gm/dl (3.4-5.0); BUN Creatinine Ratio 14.7 (10-20); Calcium 8.7 mg/dl (8.5-10.1); Creatinine Clr Calc Pharmacy 144.2 ml/min; Est GFR (African American) 109.6; Est GFR (Non-African American) 94.6; Potassium 4.1 mmol/L (3.5-5.1)
[2018-08-10 10:07] LABS: Albumin Globulin Ratio 0.9 (0.9-2); Bilirubin,Total 0.8 mg/dl (0.2-1); Globulin 3.7 gm/dl (2.5-4.0)
[2018-08-11 07:54] LABS: Albumin Level 3.3 gm/dl (3.4-5.0); Bilirubin Direct 0.1 mg/dl (0-0.2); Bilirubin,Total 0.7 mg/dl (0.2-1); Total Protein 6.9 gm/dl (6.4-8.2)
[2018-08-11 11:12] LABS: 7-Aminoclonaz, Confirm NEGATIVE NG/ML (CUTOFF=25); Hydro-Alp Ur, GC/MS NEGATIVE NG/ML (CUTOFF=25); Hydroxyethylflurazepam, Conf NEGATIVE NG/ML (CUTOFF=50); Hydroxytriazolam NEGATIVE NG/ML (CUTOFF=50); Lorazepam, Ur GC/MS NEGATIVE NG/ML (CUTOFF=50); Nordiazepam, Confirm NEGATIVE NG/ML (CUTOFF=50); Oxazepam Ur, GC/MS NEGATIVE NG/ML (CUTOFF=50); Temazepam, Confirm NEGATIVE NG/ML (CUTOFF=50)
[2018-08-12 07:15] LABS: Albumin Level 3.3 gm/dl (3.4-5.0); Bilirubin Direct 0.1 mg/dl (0-0.2); Bilirubin,Total 0.5 mg/dl (0.2-1)
[2018-08-13 07:33] LABS: Alanine Aminotransferase 141 U/L (12-78); Albumin Level 3.3 gm/dl (3.4-5.0); Alkaline Phosphatase 67 U/L (45-117); Aspartate Aminotransferase 76 U/L (15-37); Bilirubin Direct < 0.1 mg/dl (0-0.2); Bilirubin,Total 0.7 mg/dl (0.2-1); Total Protein 7.2 gm/dl (6.4-8.2)
== END 2018-08-13 15:22 ==
LOC: ED 13:29 → 2S 19:15 → 4W 08-09 16:23